=== PATIENT | male | born 1960 | race Caucasian/White ===

== ENCOUNTER 2016-06-27 10:15 | Emergency (ER) | payer OTHER ==
[~2016-06-27 10:15] MED LIST: ALBU8.5H2 IH; ALPR0.254 PO; ARMO250T4 PO; ASPI-973 PO; GABA-502 PO; HYDR50TA3 PO; INSU100C8 SUBQ; INSU100V7 SUBQ; LOPE1TAB13 PO; METO50TA3 PO; OXYC10TA8 PO; PHEN15CA67 PO; POTA20TA7 PO; PRAM0.5T3 PO; RANI150C4 PO; SERT100T9 PO; SIMV20TA4 PO; TOPI50TA88 PO
== END 2016-06-27 10:23 | disposition left against medical advice (07) ==
LOC: SED 10:15
DX: R42 Dizziness and giddiness (principal); Z53.21 Procedure and treatment not carried out due to patient leaving prior to being seen by health care provider

== ENCOUNTER 2016-07-02 05:19 | Emergency (ER) | payer OTHER ==
[~2016-07-02] VITALS: Ht 185.4 cm; Wt 152.3 kg
[2016-07-02 05:22] VITALS: BP 160/97; PULSE 80; RESP 18; O2SAT 99
--- NOTE | 2016-07-02 06:19 | ED.REPORT ---
HPI-General Illness Date of Service Jul 02, 2016 ED Provider: Frida Madera MD This is a 56 year old male with a history of insulin-dependent type II DM, anxiety, morbid obesity, hyperlipidemia, HTN, and obstructive sleep apnea presenting to the ED due to elevated blood glucose that began 2 days ago. Patient reports measured blood sugars in the 300s, which came down to 180s with insulin. Pt states he woke up from sleep 3 hours ago from sleep extremely diaphoretic, he measured blood sugar of 300 that did not improve 20 minutes after taking insulin which prompted his ED visit today. Associated symptoms include excessive thirst and severe anxiety. On further questioning about anxiety, the interview escalated, pt became angry and proceeded to throw objects around in the room. Upon re-examination, pt describes "atrocious" mood swings, diaphoretic episodes , and anger that are affecting his ADLs. Pt denies any lifestyle changes recently, he sees a counselor weekly. He describes increased stress due to a scheduled gastric bypass surgery that has been getting postponed for several months. Pt denies fever, chills, nausea, vomiting, abdominal pain, chest pain, bowel, or bladder changes at this time. Nursing Notes Stated Complaint: HIGH BLOOD SUGAR, ANXIETY Chief Complaint: General Complaint Nursing Notes Reviewed: Yes Allergies: Coded Allergies: Sulfa (Sulfonamide Antibiotics) (Verified Allergy, Unknown, Rash, 07/02/16) FIXED DRUG RASH lisinopril (Verified Allergy, Unknown, throat swelling, 07/02/16) Scheduled Armodafinil (Nuvigil) 250 Mg Tablet 250 MG PO DAILY Aspirin (Aspirin) 81 Mg Tablet 81 MG PO DAILY Gabapentin (Gabapentin) 300 Mg Capsule 300 MG PO TID Hydrochlorothiazide (Hydrochlorothiazide) 50 Mg Tablet 50 MG PO DAILY Insulin Aspart (NovoLOG U100 Insulin Vial) 100 U/Ml U 10-15 UNIT SUBQ TID- INSULIN per sliding scale Insulin Glargine (Lantus U100 Insulin Vial) 100 Unit/Ml Vial 30 UNIT SUBQ BID3SW Loperamide/Simethicone (Imodium Multi-Symptom Rel Cplt) 1 Each Tablet 2 MG PO BID Metoprolol Tartrate (Metoprolol Tartrate) 50 Mg Tablet 50 MG PO BID Phentermine (Phentermine) 15 Mg Capsule 15 MG PO DAILYAC Potassium Chloride ER (Klor-Con M20) 20 Meq Tab.er.prt 2 TAB PO DAILY Pramipexole Dihydrochloride (Mirapex) 0.5 Mg Tablet 0.5 MG PO HS Ranitidine (Ranitidine) 150 Mg Capsule 150 MG PO BID Sertraline HCl (Sertraline) 100 Mg Tablet 100 MG PO DAILY Simvastatin (Simvastatin) 20 Mg Tablet 20 MG PO PM Topiramate (Topiramate) 50 Mg Tablet 50 MG PO BID Scheduled PRN Albuterol HFA (Proair HFA) 8.5 Gm Hfa.aer.ad 2 PUFFS IH Q4-6H PRN PRN For Wheezing Alprazolam (Alprazolam) 0.25 Mg Tablet 0.25 MG PO BID PRN PRN For Anxiety hydrOXYzine Hcl (HydrOXYzine Hcl) 25 Mg Tablet 25 MG PO TID PRN PRN For Anxiety oxyCODONE (oxyCODONE) 10 Mg Tablet 10 MG PO Q4-6H PRN PRN For Pain General Time Seen by MD: 06:07 Chief Complaint Other Hx Obtained From: Patient Arrived By: Walk-in Sudden in Onset?: Yes Onset Occurred: Yesterday Symptom Duration: Since onset Severity: Current: Mild Pertinent Negative: Pt denies other symptoms Recent Healthcare: No recent doctor visit, No recent hospitalization Similar Sx Previous: No Past Medical History Past Medical History Notes: Patient a admitted through 08/29/2014 for soft tissue infection in the axilla, there is an underlying suspicion for MRSA however cultures including nasal screen, blood, throat, all negative with no growth in no MRSA on the nasal screen Past Medical History h/o MRSA Morbid obesity Type II diabetes History of narcolepsy Obstructive sleep apnea on CPAP Chronic pain on narcotics Chronic anxiety on benzos for Xanax 0.25 mg twice a day Reports: Diabetes mellitus, Hyperlipidemia, Hypertension Past Surgical History Left knee arthroscopy Smoking History Former Smoker Social History Lives at home with Alcohol Use: Denies alcohol use Drug Use: Denies drug use Other Social History: , Lives with children Ambulatory Status Independent Review of Systems Full Review of Systems Constitutional: Denies: Chills, Fever Cardiovascular: Denies: Chest pain GI: Denies: Abdominal pain, Constipation, Diarrhea, Hematemesis, Hematochezia, Nausea, Vomiting Male: Denies Dysuria Neurologic: Denies: Headache Psychiatric: Reports: Anxiety, Stress Complete sys rev & neg: except as marked. Physical Exam Vital Signs Vital Signs Date Time Temp Pulse Resp B/P Pulse Ox O2 Delivery O2 Flow Rate FiO2 07/02/16 09:57 36.7 68 20 115/56 96 Room Air 07/02/16 06:23 36.7 72 18 165/85 98 Room Air 07/02/16 05:22 36.1 80 18 160/97 99 Room Air Initial VS: Reviewed, Vital signs abnormal Head / Eyes: Atraumatic, Normocephalic, PERRL ENT: Mucous membranes moist, Conjunctiva normal, No scleral icterus Neck: Supple Respiratory: Breath sounds normal, Clear to auscultation, No respiratory distress Cardiovascular: Regular rate & rhythm, Heart sounds normal, Intact distal pulses Abdomen / GI: Soft, Non-tender, No guarding, No rebound, No distention Extremities: Vascular intact, Neuro intact, No swelling, No tenderness Skin: Warm, Dry, No cyanosis Neurologic: Alert, Oriented, Nonfocal Psychiatric: Normal thought content General/Constitutional: Awake, Alert Behavior: Positive: Agitated, Anxious Appearance / Presentation: Positive: Obese Interpretation & Diagnostics Lab Results Interpretation Result Diagram: 07/02/16 0745 07/02/16 0745 Test 07/02/16 07:45 White Blood Count 11.7th/mm3 (3.8-10.1) Red Blood Count 5.38mil/mm3 (4.40-5.80) Hemoglobin 16.3g/dL (13.8-17.2) Hematocrit 47.1% (41.0-50.0) Mean Corpuscular Volume 87.5fL (81-100) Mean Corpuscular Hemoglobin 30.3pg (27.0-35.0) Mean Corpuscular Hemoglobin Concent 34.6% (32.0-37.0) Red Cell Distribution Width 14.6% (12.3-15.4) Platelet Count 248bil/L (150-400) Neutrophils (%) (Auto) 58.0% (40-74) Lymphocytes (%) (Auto) 30.4% (14-46) Monocytes (%) (Auto) 8.2% (4-12) Eosinophils (%) (Auto) 2.2% (0-5) Basophils (%) (Auto) 0.5% (0-3) Sodium Level 141mEq/L (134-144) Potassium Level 3.6mEq/L (3.5-5.2) Chloride Level 101mEq/L (97-108) Carbon Dioxide Level 23mmol/L (18-29) Blood Urea Nitrogen 16mg/dL (6-24) Creatinine 1.01mg/dL (0.76-1.27) Estimat Glomerular Filtration Rate 82mL/min (>59) Glucose Level 89mg/dL (60-99) Calcium Level 9.5mg/dL (8.5-10.1) Magnesium Level 1.9mg/dL (1.6-2.6) Troponin T 0.010ug/L (0.0-0.011) Hold Causey Top Tube Received (Received) ECG Interpretation ECG Interpretation: NSR at a rate of 78 Time: 07:21 Interpreted by: ED physician Normal ECG Interpretation: Normal rate, Normal sinus rhythm, No acute ischemic changes, Normal QRS, Normal axis, Normal intervals, No change from prior ECGs, Adequate tracing X-Ray Chest Interpretation Chest Xray Interpretation: IMPRESSION: No acute cardiopulmonary findings. Dictated by: Ashley Mayers M.D. on 07/02/2016 at 8:36 Approved by: Ashley Mayers M.D. on 07/02/2016 at 8:36 Re-Eval/Medical Decision Med Decision/Clinical Course The patient presents with many days symptoms and has obvious anger management issues. I tried to explain to him that in the short-term the high glucose is not harmful long as it is not too high. No source of bleeding glucose is found. General source of infection was sought for as well as cardiac issues. The patient was given hydroxyzine which did help him and he was discharged home. Time of Eval: 09:20 Re-Evaluation/Progress Note: Discussed lab and imaging results and plan for d/c, all questions addressed. Counseled Regarding: Diagnosis, Lab results, Need for follow-up, When/why to return to ED Discharge & Departure Primary Impression: Poorly controlled diabetes mellitus Additional Impression: Mood disturbance Disposition: Home Discharge Condition All VS Reviewed: Yes Condition: Stable Patient Instructions: Diabetes Mellitus Type 2 in Adults (ED) Additional Instructions: Thank you for seeking care at the emergency department today. Be sure to wait at least two hours after insulin before re-checking your blood sugar. Follow up with your primary care provider for medication management and with your counselor for re-evaluation of your anxiety. Seek care for any new or worsening symptoms such as chest pain, fever, chills, nausea, or vomiting. Referrals: Tao Reagan MD (PCP) Scribe Attestation Portions of this note were transcribed by Eli Melchor. I, Dr. Madera personally performed the history, physical exam and medical decision-making; I reviewed and confirmed the accuracy of the information in the transcribed note. Signed by: polo Villarreal. 07/02/2016, 15:00. Frida Madera MD Jul 02, 2016 06:19 ELI MELCHOR Jul 02, 2016 06:29
[2016-07-02 06:23] VITALS: BP 165/85; PULSE 72; RESP 18; O2SAT 98
[2016-07-02] MEDS ORDERED: 0.9% Sodium Chloride 1,000 ML IV ONE (07:00)
[2016-07-02 08:11] LABS: BASOPHILS % (AUTO) 0.5 % (0-3); EOSINOPHILS % (AUTO) 2.2 % (0-5); MONOCYTES % (AUTO) 8.2 % (4-12); Mean Corpuscular Hemoglobin 30.3 pg (27.0-35.0); Mean Corpuscular Volume 87.5 fL (81-100); Platelet Count 248 bil/L (150-400)
--- NOTE | 2016-07-02 08:38 | DRSVH ---
PROCEDURE: X-RAY CHEST ONE VIEW, PORTABLE ([id number]) INDICATIONS: sob TECHNIQUE: One view of the chest was acquired. COMPARISON: None. FINDINGS: Surgical changes and devices: None. Lungs and pleura: No pleural effusions or pneumothorax. Lungs are clear. Mediastinum: Mediastinal contours appear normal. Heart size is normal. Bones and chest wall: No suspicious bony lesions. Overlying soft tissues appear unremarkable. IMPRESSION: No acute cardiopulmonary findings. Dictated by: Ashley Mayers M.D. on 07/02/2016 at 8:36 Approved by: Ashley Mayers M.D. on 07/02/2016 at 8:36
[2016-07-02 08:43] LABS: TROPONIN T 0.01 ug/L (0.0-0.011)
[2016-07-02 08:54] LABS: Magnesium 1.9 mg/dL (1.6-2.6)
[2016-07-02] MEDS ORDERED: HYDR-656 PO (09:26)
[2016-07-02 09:57] VITALS: BP 115/56; PULSE 68; RESP 20; O2SAT 96
== END 2016-07-02 09:20 | disposition home or self-care (01) ==
LOC: SED 05:19
DX: F39 Unspecified mood [affective] disorder (principal); E78.5 Hyperlipidemia, unspecified; I10 Essential (primary) hypertension; Z87.891 Personal history of nicotine dependence; Z79.82 Long term (current) use of aspirin; Z79.4 Long term (current) use of insulin; Z88.2 Allergy status to sulfonamides; Z88.8 Allergy status to other drugs, medicaments and biological substances
CPT/HCPCS: 36415; 71010; 80048; 82948; 83735; 84484; 85025; 93005; 96360; 99285; J7030; Q0177

== ENCOUNTER 2016-11-29 09:06 | Day surgery (SDC) | payer OTHER ==
[2016-11-29] VITALS (8 sets, daily range): BP systolic 159–195; BP diastolic 83–99; PULSE 58–98; RESP 15–26; O2SAT 94–99
[~2016-11-29] VITALS: Ht 185.4 cm; Wt 126.2 kg
[~2016-11-29 09:06] MED LIST changes: -ALBU8.5H2 IH; +ALBU8.5H2 INHALATION; -ALPR0.254 PO; -ARMO250T4 PO; +ARMO250T6 PO; +CeFAZolin Inj 3 GM in IV Premix IV ONE; -GABA-502 PO; -LOPE1TAB13 PO; +LOPE2CAP PO; -METO50TA3 PO; +MS15TCR PO; -OXYC10TA8 PO; +OXYC20TA4 PO; +PHEN-528 PO; -PHEN15CA67 PO; +POTA-62 PO; -POTA20TA7 PO; -SERT100T9 PO; +TOPI-31 PO; -TOPI50TA88 PO
[2016-11-29] MEDS ORDERED: Ondansetron 2 mg/mL 2 mL Inj ONE (09:07)
[2016-11-29] MEDS ORDERED: Rocuronium 10 mg/mL 5 mL Inj ONE (09:07)
[2016-11-29] MEDS ORDERED: Dexamethasone 4 mg/mL Inj ONE (09:07)
[2016-11-29] MEDS ORDERED: Propofol 10,000 mCg/mL 20 mL Inj ONE (09:07)
[2016-11-29] MEDS ORDERED: fentaNYL-PF 50 mCg/mL 2 mL Inj ONE (09:07)
[2016-11-29] MEDS: Lactated Ringer's 1,000 ML IV SCH ×2 (09:17→10:25)
[2016-11-29] MEDS ORDERED: HYDROcodone-APAP 5-325 mg Tablet PO PRN (10:00)
--- NOTE | 2016-11-29 10:04 | PCM.ORTHOP ---
Orthopedic Operative Report Date of Service: Nov 29, 2016 Pre Operative Diagnosis Left shoulder rotator cuff tear, impingement syndrome, acromioclavicular joint arthritis Post Operative Diagnosis Left shoulder rotator cuff tear, impingement syndrome, acromioclavicular joint arthritis, synovitis Procedure Left shoulder arthroscopy, rotator cuff repair, subacromial decompression, distal clavicle excision, extensive debridement Surgeon Surgeon: Celio Mora MD Assistants: Michele Britton Indication for Procedure Left shoulder rotator cuff tear Findings per dictation Details of Procedure TECHNOLOGY METHODOLOGY CONSULTANT SURGEON: During the operation, the services of physician surgical appliances salesperson were medically indicated and necessary to provide exposure of the operative site for the surgical procedure and to maintain the limb in a proper position to carry out the operation safely and efficiently. Without the qualified assistant professor of education being present, it would have extended the operative procedure and made the procedure technically more difficult to perform. INDICATIONS: The patient is a Kermit Dallas who is a 56-year-old male with left shoulder pain refractory to conservative treatment. The risks, benefits, and alternatives of surgery were discussed with the patient. The risks included but were not limited to infection, bleeding, damage to vessels and nerves, loss of motion, continued pain, complications due to anesthesia including myocardial infarction, stroke, , etc. The patient stated understanding of the nature of the surgical procedure and gave written and verbal consent to proceed. PROCEDURE: The patient was brought into the operating room and placed supine on the operating room table. An interscalene block was placed in the left shoulder for postoperative pain management, followed by the administration of general anesthesia. . The patient was then placed into the lateral decubitus position with the right side up. An axillary role was placed and the legs were padded as necessary to avoid pressure points. The patient was maintained in position with a beanbag evacuation device. A thorough examination of the left shoulder under anesthesia was performed. The patient had 150 degrees of forward elevation and 120 degrees of abduction. In 90 degrees of abduction there was 80 degrees of external rotation and 60 degrees of internal rotation. The shoulder was stable to load-shift testing. The left upper extremity was then prepped and draped in the usual fashion. The arm was suspended with a well-padded sleeve with eight/ten pounds of balanced suspension in the arthroscopic position. A standard posterior portal was made inferior and medial to the posterior corner of the acromion. The incision was made only through skin. The trocar was advanced through the soft tissue with a blunt-tipped obturator. This was inserted into the glenohumeral joint without difficulty. The 4 mm arthroscope was placed through the cannula and attached to the video monitor system. Inflow was achieved using the arthroscopic pump. The pressure was maintained at 35-40 mm of mercury throughout the entire procedure. Once the arthroscope confirmed visualization within the shoulder joint, it was advanced anteriorly into the rotator interval beneath the biceps tendon. A Wissinger harry was then used to create the anterior portal from inside-out. A second anterior stab wound incision was made only through skin and an anterior cannula was placed. A routine arthroscopic survey was begun. Survey: Minimal biceps tendinitis, anterior labral fraying, A2B3C3 2x2cm RTC tear The arm was then placed in the bursoscopy position. An extensive debridement was then performed of unstable cartilage, tendon, degenerative labral tissue , all debrided back to stable tissue Complex surgical procedure: This was an extremely complex surgical procedure which took approximately 30-40 % longer to complete than a standard repair. Without the use of a qualified buyer assistant, this surgical procedure would have taken even considerably longer and been unable to be performed arthroscopically. Adithya procedure: Within the subacromial space there was marked fraying on the undersurface of the coracoacromial ligament consistent with impingement. A decision was thus made to proceed with arthroscopic subacromial decompression. Using an RF wand and a motorized shaver the coracoacromial ligament was recessed from the anterior acromial edge. An orientation trough was made along the lateral margin of the acromion, from the anterior corner back to the posterior margin of the AC joint. A sequential subacromial smoothing was carried out, removing approximately 6 mm of bone corresponding to the preoperative radiographs. Once completed, the AC joint capsule was opened. There was inferior spurring as well as synovitis and arthritic changes at the AC joint and a decision was made to proceed with distal clavicle excision. Using a motorized bur working initially from posteriorly and then anteriorly, the outer 10 mm of the distal clavicle were excised. The arthroscope was then positioned anteriorly within the AC resection site confirming an excellent level of resection. Through a separate fascial incision, an extensive debridement of the subacromial space was then performed consisting of frayed CA ligament , inflamed bursal tissue, bursal sided tendon fraying. Single anchor supraspinatus repair Attention was then directed to the rotator cuff repair. Using the motorized shaver from both the anterolateral portal and the posterior portal, the free edge of rotator cuff was debrided. The anatomic neck of the tuberosity was then gently abraded, using the motorized shaver and exposing good bone for healing. Via an accessory anterolateral portal, a triple-loaded anchor was inserted, with excellent fixation purchase. The three stitches were then transported across the rotator cuff using a shuttling technique, spacing the sutures equidistantly. Once the sutures were all passed, they were sequentially tied, using SMC knots and alternating half-hitches, which gave excellent loop and knot security. This reduced the rotator cuff back to the anatomic neck. A microfracture was then performed laterally on the tuberosity creating a crimson duvet to aid in tendon healing. The arm was placed through range of motion and the rotator cuff and humeral head moved well as a unit. There was no further evidence for impingement. The subacromial space was irrigated with an additional 500 mL lactated Ringer solution. Excess fluid was drained. The arthroscopic portals were closed with #4-0 Nylon and Steri-Strips. A dry sterile dressing was applied, followed by a neutral rotation sling. The patient was awakened in the operating room and transported to the recovery room in satisfactory condition. The patient appeared to tolerate the procedure well. There were no complications noted. Nonweightbearing to affected upper extremity. Please leave sling on at all times. You may remove sling 3 times a day to move the elbow wrist and fingers. Do not move your shoulder. Please keep the affected extremity elevated when possible. You may use ice and/or heat as needed for comfort. Follow-up in 2 weeks with me with 2-view xrays and for suture removal and Steri -Strip application, start physical therapy phase 1. Follow-up with me at 6 weeks, 12 weeks, 18 weeks with progression of physical therapy as per my protocol (please ask me for protocol if needed). Follow-up with me before full release at 5 months postop. Grafts, Implants: Implants-See Implant Record Complications There were no periprocedural complications identified. Condition Stable Anesthetic Administered: GA Catheters: None Output, Estimated Blood Loss: 5 Blood Admin during surgery: No Surgical Cast or Splint: Shoulder Immobilizer Surgical Specimen Removed: No Specimen sent to Pathology: No copies to: Celio Mora MD, Christopher L MD Nov 29, 2016 10:04 Attention was then directed to the rotator cuff repair. Using the motorized shaver from both the anterolateral portal and the posterior portal, the free edge of rotator cuff was debrided. The anatomic neck of the tuberosity was then gently abraded, using the motorized shaver and exposing good bone for healing. Via an accessory anterolateral portal, a triple-loaded anchor was inserted, with excellent fixation purchase. The three stitches were then transported across the rotator cuff using a shuttling technique, spacing the sutures equidistantly. Once the sutures were all passed, they were sequentially tied, using SMC knots and alternating half-hitches, which gave excellent loop and knot security. This reduced the rotator cuff back to the anatomic neck. A microfracture was then performed laterally on the tuberosity creating a crimson duvet to aid in tendon healing. The arm was placed through range of motion and the rotator cuff and humeral head moved well as a unit. There was no further evidence for impingement. The subacromial space was irrigated with an additional 500 mL lactated Ringer solution. Excess fluid was drained. Two anchor helix supraspinatus repair Attention was then directed to the rotator cuff repair. Using the motorized shaver from both the anterolateral portal and the posterior portal, the free edge of rotator cuff was debrided. The anatomic neck of the tuberosity was then gently abraded, using the motorized shaver and exposing good bone for healing. Via an accessory anterolateral portal, two triple-loaded were then inserted with excellent fixation purchase. The 6 stitches from these two anchors were then transported across the rotator cuff spacing the sutures equidistantly. Once the sutures were all passed, they were sequentially tied using SMC knots and alternative half-hitches which gave excellent loop and knot security. This reduced the rotator cuff back to the anatomic neck. A microfracture was then performed laterally on the tuberosity creating a crimson duvet to aid in tendon healing. The arm was then placed through a range of motion. The rotator cuff and humeral head moved well as a unit. There was no further evidence for impingement ARTHROSCOPIC BICEPS TENODESIS Attention was then directed towards biceps tenodesis. With the arthroscope in the lateral viewing portal a motorized shaver was introduced from the anterior working portal, identifying the Mehalik hitch at the top of the bicipital groove. A motorized shaver and VAPR wand was then used inferior from this, debriding the proximal humerus and identifying the falciform ligament. The biceps tendon was then identified and the bicipital sheath was opened using a probe. The groove did reveal evidence of synovitis in this area. With appropriate resting tension maintained using the Mehalik hitch, a percutaneous spinal needle was used to gera the resting position of the biceps tendon, as well as the position for tenodesis at the bottom of the inter-tubercular groove. A blue mercedez was then used to gera with tendon. An accessory anterior inferior portal was made approximately 6-7 cm from the anterior acromial margin under arthroscopic control. A tlgw-ofv-opxwdn technique was used to spread the soft tissues down to the level of the bicipital groove. The long head of the biceps was then retrieved using a grasper and the tendon was brought out the wound. A #2 Double loaded Fiberwire Lenny Net stitch was placed for a length of 1.5 cm from the blue mercedez marking position in the proximal biceps. This was then sized using the Arthrex biotenodesis set and measured mm. A mm reamer was then selected. A Canuflex cannula was then placed onto the bicipital groove. The biotenodesis guide wire was placed into the proximal humerus at the designated marking position corresponding to the appropriate tension and introduced just to the posterior cortex. The anterior cortex was then reamed using the reamer for a depth of 20 mm. 2 7/64 holes were then created approximately 1.5 cm inferior to the tunnel for suture passing. A Spectrum suture hook was placed through the inferior airline transport pilot hole and retrieved out the proximal tunnel. A shuttling technique was carried out passing one suture limb on either side of the long head of the biceps. Tension was then applied to the biceps sutures, reducing and docking the biceps intra-osseously. With the elbow in full extension and the hand in full supination tension was applied to reapproximate the anatomic resting length and the biceps was then secured using an arthroscopic Revo knot, tying the two limbs of the suture together over the biceps tendon. This gave excellent secure fixation. The biceps was then probed and had stable fixation. The arm was placed through a range of motion and the rotator cuff and humeral head moved well as a unit. There was no further evidence of impingement. The subacromial space was irrigated with an additional liter of lactated Ringer s solution and excess fluid was drained. The arthroscopic portals were closed with #4-0 Nylon and Steri-Strips. A dry sterile dressing was applied, followed by a neutral rotation sling. The patient was awakened in the operating room and transported to the recovery room in satisfactory condition. The patient appeared to tolerate the procedure well. There were no complications noted. Nonweightbearing to affected upper extremity. Please leave sling on at all times. You may remove sling 3 times a day to move the elbow wrist and fingers. Do not move your shoulder. Please keep the affected extremity elevated when possible. You may use ice and/or heat as needed for comfort. Follow-up in 2 weeks with me with 2-view xrays and for suture removal and Steri -Strip application, start physical therapy phase 1. Follow-up with me at 6 weeks, 12 weeks, 18 weeks with progression of physical therapy as per my protocol (please ask me for protocol if needed). Follow-up with me before full release at 5 months postop. Grafts, Implants: Implants-See Implant Record Complications There were no periprocedural complications identified. Condition Stable Anesthetic Administered: GA Catheters: None Output, Estimated Blood Loss: 5 Blood Admin during surgery: No Surgical Cast or Splint: Shoulder Immobilizer Surgical Specimen Removed: No Specimen sent to Pathology: No copies to: Celio Mora MD, Christopher L MD Nov 29, 2016 10:04
--- NOTE | 2016-11-29 10:05 | PCM.HPANE ---
Patient Data Surgeon Admitting Provider: Attending Provider:Celoi Mora MD Primary Care Physician:Edward Rueda MD Other Provider:Lisset Kateingham Anesthesia Reason for Visit Left Rotator Cuff Tear Ht/WT & BMI Height (Feet): 6 Height (Inches): 1 Weight (Kilograms): 126.21 Body Mass Index 36.00 Allergies Coded Allergies: Sulfa (Sulfonamide Antibiotics) (Verified Allergy, Unknown, Rash, 11/21/16) FIXED DRUG RASH lisinopril (Verified Allergy, Unknown, throat swelling, 11/21/16) Past Anesthesia History Anesthesia History: Denies:: Anesthesia Reactions Diabetes History Hx Diabetes?: Yes Type of Diabetes: Type II Glycemic Control: Insulin Dependent MRSA MRSA: Yes Medications Blood Thinner: Aspirin Hypertension Medication: Yes Home Meds Incl Beta Maria Elena: No Reported Medications Loperamide 2 Mg Capsule2 Mg PO Q4H PRN For Diarrhea or Loose Stool 11/21/16 Albuterol HFA (Proair HFA)8.5 Gm Hfa.aer.ad2 Puffs INHALATION Q4H PRN For Shortness of Breath #1 INHALER 11/21/16 Topiramate 100 Mg [id number] Mg PO BID Ref 0 11/21/16 Simvastatin 20 Mg Cusfaz00 Mg PO HS Ref 0 11/21/16 Ranitidine 150 Mg Wjarpqy337 Mg PO BID Ref 0 11/21/16 Pramipexole Dihydrochloride (Mirapex)0.5 Mg Tablet0.5 Mg PO TID 11/21/16 Potassium Chloride ER 20 Meq Tablet.er40 Meq PO DAILY Ref 0 TAKE WITH FOOD 11/21/16 Phentermine 37.5 Mg Fmorttk92.5 Mg PO DAILY 11/21/16 oxyCODONE 20 Mg Zwfyof70 Mg PO Q4H PRN For Pain Ref 0 11/21/16 Morphine Sulfate ER (MS Contin)15 Mg Tablet.er15 Mg PO BID Ref 0 11/21/16 Insulin Glargine (Lantus U100 Insulin Vial)100 Unit/Ml Vial15 Unit SUBQ BID #1 VIAL Ref 0 11/21/16 Insulin Aspart (NovoLOG U100 Insulin Vial)100 U/Ml U15 Unit SUBQ TID PRN sliding scale #1 VIAL Ref 0 11/21/16 Hydrochlorothiazide 50 Mg Grgwuc47 Mg PO DAILY 30 Days Ref 0 11/21/16 Aspirin 81 Mg Hpkplr05 Mg PO DAILY Ref 0 11/21/16 Armodafinil 250 Mg Sykhxg303 Mg PO DAILY 11/21/16 Last Time Dose Received No meds for two months (since gastric bypass) History History of ENT Problems?: No HEENT History: Denies:: Abnormal Airway Cataracts Difficult Intubation Dysphagia Glaucoma Hearing Problem Sinus Problem TMJ Denture Type: Full- Upper Full- Lower Teeth Condition: Missing Teeth Hx of Heart Problems?: Yes Cardiovascular History: Positive for:: Hypertension Denies:: Cardiac Surgery Chest Pain Congestive Heart Failure Edema Irregular Heartbeat Pacemaker Hx of Respiratory Problem?: Yes Respiratory History: Positive for:: Dyspnea (all the time, exertional) Use of C-PAP Machine Denies:: Asthma COPD Chest Surgery Emphysema Hemoptysis Pneumonia Tuberculosis Hx Neurologic Problems?: No Neurological History: Denies:: CVA Multiple Sclerosis Parkinson's Disease Seizures Hx of GI Problems?: Yes Other GI Pertinent History: Esperanza en y gastric bypass done 10/04/16 Hx of Problems?: No Male Hx: Denies:: Prostate Problems Scrotal Mass Testicular Surgery Skin History: Denies:: History Skin Disorders? Pressure Ulcers Hx Musculoskeletal Problems?: Yes Musculoskeletal History: Positive for:: Back Injury Degenerative Joint Joint Replacement (left total knee) Musculoskeletal Trauma (left shoulder current admission problem) Osteoarthritis Hx of Psycho/Social Problems?: Yes Psycho Social History: Positive for:: Anxiety Denies:: Bipolar Disorder Hx Depression Hx Surgeries?: Yes (left total knee, esperanza en y bypass) Hx Any Other Health Problems?: Yes Other History: Positive for:: Hospitalization Denies:: Cancer Thyroid Disease History Blood Transfusions: Denies:: Blood Transfusions Hx Diabetes: Yes Hx Alcohol Use: NoHx Substance Use: Yes (marijuana) Smoking Status: Former Smoker Have You Smoked inLast 12 mo: No Stop/Bang S-Snoring: Do You Snore Loudly: No T-Tired: feel tired, fatigued: Yes O-Obsered: Observed not breath: No P-Blood Pressure: treated: Yes B- Body Mass Index > 35 kg/m2: Yes A- Age over 50: Yes N- Neck Large Circumference: Yes G- Gender Male: Yes VETO Total Score: 6 Risk Assessment Category Category 1A: Patient has history of documented sleep apnea, and HAS NOT received any narcotic, sedative or anesthesia administration during this stay. Category 1B: Patient has history of documented sleep apnea, and HAS received any narcotic , sedative or anesthesia administration during this stay Category 2: Patient has SUSPECTED Obstructive Sleep Apnea, and HAS received any narcotic , sedative or anesthesia administration during this stay. Category 3: Patient has SUSPECTED Obstructive Sleep Apnea and HAS NOT received narcotic, sedative or anesthesia administration during this stay. Category 4: Outpatient in Procedural Areas with known sleep apnea or who screen positive for High Risk via the STOP/BANG questionnaire. Exam Exam Vital Signs Vital Signs Date Time Temp Pulse Resp B/P Pulse Ox O2 Delivery O2 Flow Rate FiO2 11/29/16 09:32 36.6 70 16 159/87 99 Room Air General Appearance: Alert, Oriented X3 HEENT/AIRWAY: MP 1, Neck Movement (FROM) Lungs: Clear to Auscultation, Clear to Percussion Heart: Exam Unremarkable, Regular Rate/Rhythm Meds/Labs/Diagnostics Admission Meds Current Medications Lactated Ringer's (Lr) 1,000 ml @ 120 mls/hr Q8H20M IV Last administered on t 09:17; Start 11/29/16 at 05:00; Stop 11/29/16 at 13:19 Plan Impression Patient chart reviewed, patient interviewed and anesthestic plan with risks, benefits, and alternatives discussed, and informed consent obtained. ASA Physical Status: ASA2 Mod Systemic Disease Anesthetic Plan: GA, Regional Block (For post-op pain control) Bene/Risks/Altern/Consents: Yes HP Complete Prior to Induction: Yes Abiel Pelayo MD Nov 29, 2016 09:45
[2016-11-29] MEDS ORDERED: Lactated Ringer's 1,000 ML IV SCH (13:20)
[2016-11-29] MEDS ORDERED: Atropine 0.4 mg/mL Inj IVPUSH PRN (13:20)
[2016-11-29] MEDS ORDERED: Lactated Ringer's 500 ML IV PRN (13:20)
[2016-11-29] MEDS ORDERED: Ondansetron 2 mg/mL 2 mL Inj IVPUSH PRN (13:20)
[2016-11-29] MEDS ORDERED: fentaNYL-PF 50 mCg/mL 2 mL Inj IVPUSH PRN (13:20)
[2016-11-29] MEDS ORDERED: HYDROmorphone 1 mg/mL Inj IVPUSH PRN (13:20)
[2016-11-29] MEDS ORDERED: EPHEDrine Sulfate 50 mg/mL Inj IVPUSH PRN (13:20)
[2016-11-29] MEDS ORDERED: MetoCLOpramide 5 mg/mL 2 mL Inj IVPUSH PRN (13:20)
[2016-11-29] MEDS ORDERED: Labetalol 5 mg/mL 4 mL Inj IV PRN (13:20)
[2016-11-29] MEDS ORDERED: Phenylephrine 10,000 mCg/mL Inj IVPUSH PRN (13:20)
--- NOTE | 2016-11-29 14:14 | PCM.ANEP1 ---
Post Anesthesia PACU Phase 1 Assessment Vital Signs Vital Signs Date Time Temp Pulse Resp B/P Pulse Ox O2 Delivery O2 Flow Rate FiO2 11/29/16 13:26 36.2 78 16 195/84 94 Room Air 11/29/16 13:10 62 15 178/88 94 Room Air 11/29/16 12:55 58 26 180/89 94 Room Air 11/29/16 12:50 72 15 161/98 95 Room Air 11/29/16 12:45 65 16 164/97 98 Simple Mask 10 11/29/16 12:40 36.5 66 17 163/99 97 Simple Mask 10 11/29/16 09:32 36.6 70 16 159/87 99 Room Air Anesthetic Administered: GA Level of Alertness: Awake, talking PINTO's with Equal Strength: No (ISC SSB) Pain: No Nausea or Vomiting: No CV Function & Hydration Stable: Yes Airway Device: Oxygen Delivery: Simple Mask Lungs: Clear to Auscultation, Clear to Percussion PACU Phase 2 Assessment Complications: No Follow up Care: No Patient Instructions Provided: N/A Abiel Pelayo MD Nov 29, 2016 14:14
== END 2016-11-29 23:59 | disposition home or self-care (01) ==
LOC: SAS 09:06
PROVIDERS: ATTEND Orthopaedic Surgery
DX: M75.122 Complete rotator cuff tear or rupture of left shoulder, not specified as traumatic (principal); M75.42 Impingement syndrome of left shoulder; M19.012 Primary osteoarthritis, left shoulder; I10 Essential (primary) hypertension; E10.9 Type 1 diabetes mellitus without complications; E78.5 Hyperlipidemia, unspecified; F41.9 Anxiety disorder, unspecified; G47.33 Obstructive sleep apnea (adult) (pediatric); G25.81 Restless legs syndrome; G89.29 Other chronic pain; M19.90 Unspecified osteoarthritis, unspecified site; F12.90 Cannabis use, unspecified, uncomplicated; E66.01 Morbid (severe) obesity due to excess calories; Z68.41 Body mass index [BMI] 40.0-44.9, adult; Z79.82 Long term (current) use of aspirin; Z79.4 Long term (current) use of insulin; Z86.14 Personal history of Methicillin resistant Staphylococcus aureus infection; Z98.84 Bariatric surgery status; Z96.652 Presence of left artificial knee joint; Z87.891 Personal history of nicotine dependence
CPT/HCPCS: 29824; 29826; 29827; 76942; C1713; J0690; J1100; J2405; J2704; J3010; J7120